=== PATIENT | female | born 2000 | race Caucasian/White ===

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

== ENCOUNTER 2018-01-15 22:52 | Observation (INO) | payer OTHER ==
[~2018-01-15] VITALS: Ht 160 cm; Wt 77.6 kg
[~2018-01-15 22:52] MED LIST: IBUP400T18 PO
[2018-01-15 23:19] LABS: BILIRUBIN,URINE NEGATIVE (NEG); CLARITY,URINE CLEAR; COLOR,URINE YELLOW; NITRITE,URINE NEGATIVE (NEG); PH,URINE 5.5; PROTEIN,URINE NEGATIVE (NEG-TRACE); UROBILINOGEN,URINE 0.2 mg/dL (0.2 mg/dL)
[2018-01-15 23:25] LABS: AMPHETAMINE/METHAMPHETAMINE NEG (NEG); BARBITURATES NEG (NEG); BENZODIAZEPINES NEG (NEG); CANNABINOIDS POS (NEG); COCAINE NEG (NEG); METHADONE NEG (NEG); OPIATES NEG (NEG); PHENCYCLIDINE NEG (NEG)
[2018-01-15 23:27] LABS: BACTERIA,URINE MODERATE /HPF (0-FEW); RBC,URINE 0 /HPF (0-2); SQUAMOUS EPITHELIAL CELL,UR MANY /LPF
[2018-01-15 23:56] LABS: AMNIO PT NEGATIVE
[2018-01-16] MEDS: IV RINGERS,LACTATED 1000ML 1,000 ML IV PRN ×3 (00:22→01:24)
[2018-01-16] MEDS ORDERED: TERBUTALINE 1 MG/ML VIAL. SQ ONE (02:15)
[2018-01-16] MEDS ORDERED: ACETAMINOPHEN 500 MG TABLET PO ONE (02:15)
[2018-01-16 02:22] VITALS: BP 114/53
--- NOTE | 2018-01-16 02:24 | RAD ---
CLINICAL HISTORY: Contractions, possibly leaking fluid COMPARISON: CT 01/18/2017, ultrasound 01/16/2017, 02/03/2014 TECHNIQUE: Transabdominal ultrasound of the uterus was performed. FINDINGS: There is a single live fetus in cephalic position. The placenta is anterior in location without placenta previa. The amniotic fluid is normal for gestational stage. The amniotic fluid index is 17.1. Cardiac activity is seen with heart rate measuring 140 bpm. measurements are: BPD - 7.12 cm = 28 weeks 4 days HC - 26.46 cm = 28 weeks 6 days AC - 24.74 cm =29 weeks 0 day FL - 5.27 cm = 28 weeks 0 days The gestational size based on these measurements is 28 weeks 4 days +/- two weeks. The estimated weight is 1256 +/- 186 gm. The estimated date of delivery is 04/06/2018. IMPRESSION: 1. Single live intrauterine intrauterine gestation with normal JANES. 2. No structural abnormalities or sonographic markers are detected. Electronically signed by: Srinivasan Shook MD (01/16/2018 2:21 AM) [id number]
[2018-01-16] MEDS ORDERED: ACETAMINOPHEN 500 MG TABLET PO PRN (09:15)
== END 2018-01-16 10:53 | disposition home or self-care (01) ==
LOC: 3 SO LND 22:52
PROVIDERS: ADMIT Obstetrics & Gynecology; ATTEND Obstetrics & Gynecology
DX: O26.892 Other specified pregnancy related conditions, second trimester (principal); R10.9 Unspecified abdominal pain; Z3A.27 27 weeks gestation of pregnancy; Z79.899 Other long term (current) drug therapy
CPT/HCPCS: 36415; 76815; 80307; 81001; 82731; 84112; 87086; 96372; G0378; G0379; J3105; J7120; G0479